=== PATIENT | male | born 1965 | race Hispanic/Latino ===

== ENCOUNTER 2017-07-25 12:20 | Emergency (ER) | payer BC, OTHER ==
[2017-07-25 12:56] VITALS: BP 124/80; PULSE 77; RESP 18; TEMP 97; O2SAT 100
[2017-07-25] MEDS ORDERED: DiphenhydrAMINE 50 mg/ml Inj IVP STA (13:04)
--- NOTE | 2017-07-25 13:19 | ED PDOC ---
HPI: Abdomen Time Seen by Provider: 07/25/17 12:59 Chief Complaint (Nursing): Abdominal Pain Chief Complaint (Provider): Abdominal Pain History Per: Patient History/Exam Limitations: no limitations Onset/Duration Of Symptoms: Days (x9) Current Symptoms Are (Timing): Still Present Additional Complaint(s): Rogelio Evans is a 52 year old male with a past medical history of high cholesterol for which he takes Mobic and a past surgical history of an appendectomy presenting to the ED for an evaluation of left lower abdominal pain s/p fall. The patient states 9 days prior to arrival he fell on a wooden stump and bruised his left abdominal wall. The patient started having pain in his left lower quadrant yesterday and was seen by his PMD who sent him here for further evaluation. PMD: Zana Jaimes MD Past Medical History Reviewed: Historical Data, Nursing Documentation, Vital Signs Vital Signs: Last Vital Signs Temp 97 F L 07/25/17 12:52 Pulse 77 07/25/17 12:52 Resp 18 07/25/17 12:52 BP 124/80 07/25/17 12:52 Pulse Ox 100 07/25/17 13:40 - Medical History PMH: Asthma, Hyperlipidemia Denies: Chronic Kidney Disease - Surgical History Surgical History: Appendectomy - Social History Current smoker - smoking cessation education provided: No Ex-Smoker (has not smoked in the last 12 months): No Alcohol: None Drugs: Denies - Immunization History Hx Tetanus Toxoid Vaccination: Yes Hx Influenza Vaccination: No Hx Pneumococcal Vaccination: No - Allergies Allergies/Adverse Reactions: Allergies Allergy/AdvReac Type Severity Reaction Status Date / Time shellfish derived Allergy RASH Verified 07/25/17 12:55 Review of Systems ROS Statement: Except As Marked, All Systems Reviewed And Found Negative Gastrointestinal: Positive for: Abdominal Pain (left lower quadrant pain and bruising) Physical Exam - Reviewed Nursing Documentation Reviewed: Yes Vital Signs Reviewed: Yes - Physical Exam Appears: Positive for: Non-toxic, No Acute Distress Head Exam: Positive for: ATRAUMATIC, NORMOCEPHALIC Skin: Positive for: Normal Color, Warm, Dry Eye Exam: Positive for: Normal appearance Cardiovascular/Chest: Positive for: Regular Rate, Rhythm, Chest Non Tender Respiratory: Positive for: Normal Breath Sounds. Negative for: Respiratory Distress Gastrointestinal/Abdominal: Positive for: Tenderness (to mass in LLQ), Mass ( 10x6 cm mass to LLQ; no fluctuance ), Other (healing bruises to left lower abdominal wall) Neurologic/Psych: Positive for: Alert, Oriented - Laboratory Results Result Diagrams: 07/25/17 13:40 07/25/17 13:40 - ECG O2 Sat by Pulse Oximetry: 100 (RA) Pulse Ox Interpretation: Normal Medical Decision Making Medical Decision Making: Time: 12:59 Impression: Abdominal Trauma Plan: * CT Abd & Pelvis * CMP * CBC (with Differential) * PTT * Prothrombin Time * Benadryl 50 mg IVP * Pepcid 20 mg IVP * Reevaluation 13:39 Pt is refusing Benadryl before CT Scan. Understands potential risk of allergic reaction. 1543 CT AP IMPRESSION: 1. Suspect left rectus sheath hematoma. 2. 2.4 x 9.1 cm fluid collection in the left lower quadrant anterior abdominal wall may represent a chronic hematoma, fluid collection or lymphocele. Clinical correlation and follow-up is advised. Case discussed with Dr. Jaimes, pt's PCP who suggests patient to follow up outpatient with Dr. Lewis Lewis. Of note, pt is inpatient but requesting to leave as he has to go to work. Scribe Attestation: Documented by Trinity Chatman, acting as a scribe for Dilma Germain MD. Provider Scribe Attestation: All medical record entries made by the Scribe were at my direction and personally dictated by me. I have reviewed the chart and agree that the record accurately reflects my personal performance of the history, physical exam, medical decision making, and the department course for this patient. I have also personally directed, reviewed, and agree with the discharge instructions and disposition. Disposition - Clinical Impression Clinical Impression: Rectus sheath hematoma - Disposition Referrals: Lewis Armando MD [Staff Provider] - Zana Jaimes MD [Staff Provider] - Disposition: Routine/Home Disposition Time: 16:00 Condition: STABLE Instructions: Hematoma (ED) Forms: [employer] (I[place]ic)
[2017-07-25 13:54] LABS: BASO # 0.1 K/uL (0.0-0.2); BASO % 0.6 % (0.0-2.0); EOS # 0.4 K/uL (0.0-0.7); EOS % 5.3 % (0.0-4.0); HEMATOCRIT 45.4 % (35.0-51.0); LYMPH # 1.6 K/uL (1.0-4.3); LYMPH % 20.1 % (20.0-40.0); MEAN CELL VOLUME 86.1 fl (80.0-94.0); MEAN CORPUSCULAR HGB CONC 32.6 g/dL (33.0-37.0); MEAN PLATELET VOLUME 7.6 fl (7.2-11.7); MONO # 0.8 K/uL (0.0-0.8); MONO % 9.9 % (0.0-10.0); NEUT # 5.2 K/uL (1.8-7.0); NEUT % 64.1 % (50.0-75.0); NRBC % 0.1 % (0.0-0.0); WHITE BLOOD COUNT 8.1 K/uL (4.8-10.8)
[2017-07-25 14:08] LABS: ALB/GLOB RATIO 1.5 (1.0-2.1); ALKALINE PHOSPHATASE 47 U/L (38-126); ALT/SGPT 44 U/L (21-72); AST/SGOT 29 U/L (17-59); BILIRUBIN,TOTAL 0.6 mg/dl (0.2-1.3); BLOOD UREA NITROGEN 14 mg/dl (9-20); CALCIUM 9.7 mg/dL (8.4-10.2); CARBON DIOXIDE 27 mmol/L (22-30); CHLORIDE 103 mmol/L (98-107); GFR AFRICAN-AMERICAN > 60; GLUCOSE,RANDOM 100 mg/dL (75-110); POTASSIUM 4.2 MMOL/L (3.6-5.0); SODIUM 145 mmol/l (132-148); TOTAL PROTEIN 7.6 G/DL (6.3-8.2)
[2017-07-25 14:12] LABS: PARTIAL THROMBOPLASTIN TIME 27.8 Seconds (25.6-37.1)
[2017-07-25] MEDS ORDERED: Iohexol 300 100 ML IJ ONE (14:56)
[2017-07-25] MEDS ORDERED: Sodium Chloride 0.9% 50 ML IV ONE (14:56)
--- NOTE | 2017-07-25 15:45 | CT ---
PROCEDURE: CT Abdomen and Pelvis with contrast HISTORY: LLQ mass, s/p fall COMPARISON: None. TECHNIQUE: CT scan of the abdomen and pelvis was performed after intravenous administration of contrast. Oral contrast was not administered. Coronal and sagittal reformatted images were obtained. Contrast dose: 95 CC OMNIPAQUE 300 Radiation dose: Total exam DLP = 1098.19 mGy-cm. This CT exam was performed using one or more of the following dose reduction techniques: Automated exposure control, adjustment of the mA and/or kV according to patient size, and/or use of iterative reconstruction technique. FINDINGS: LOWER THORAX: There is linear atelectasis/ scarring in the lingula. The lung bases are clear. LIVER: The liver is normal in size and there is diffuse fatty infiltration in the liver. No gross lesion or ductal dilatation. GALLBLADDER AND BILE DUCTS: There are no calcified gallstones. PANCREAS: The pancreas is normal in size and there is homogeneous enhancement. No gross lesion or ductal dilatation. SPLEEN: The spleen is normal in size without focal lesion. ADRENALS: There is no discrete nodule. KIDNEYS AND URETERS: Both kidneys are normal in size without hydronephrosis or solid mass. VASCULATURE: There are atherosclerotic aortoiliac calcifications. No aortic aneurysm. BOWEL: There is a gastric lap band. The small bowel loops are normal in caliber. There is moderate amount of stool scattered throughout the colon. There is mild colonic diverticulosis without CT evidence for acute diverticulitis. Small APPENDIX: Normal appendix. PERITONEUM: No free fluid. No free air. LYMPH NODES: No enlarged lymph nodes. BLADDER: Grossly normal in appearance. REPRODUCTIVE: The prostate gland is normal in size. BONES: No acute fracture. 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 OTHER FINDINGS: There is a 2.4 x 9.1 cm lobular fluid collection in the left lower quadrant anterior abdominal wall. There is also mild soft tissue swelling and fat stranding in the left lower abdominal wall. There is also convexity and asymmetric increased density in the left rectus sheath. There is a small fat containing left inguinal hernia. IMPRESSION: 1. Suspect left rectus sheath hematoma. 2. 2.4 x 9.1 cm fluid collection in the left lower quadrant anterior abdominal wall may represent a chronic hematoma, fluid collection or lymphocele. Clinical correlation and follow-up is advised.
== END 2017-07-25 16:01 | disposition home or self-care (01) ==
LOC: H.ER 12:20
DX: S36.69XA Other injury of rectum, initial encounter (principal); W19.XXXA Unspecified fall, initial encounter; Y92.89 Other specified places as the place of occurrence of the external cause
CPT/HCPCS: 74177; 80053; 85025; 85610; 85730; 96374; 99283; Q9967